=== PATIENT | male | born 1985 | race Hispanic/Latino ===

== ENCOUNTER 2020-03-01 08:04 | Emergency (ER) | payer OTHER ==
[2020-03-01] MEDS ORDERED: SODIUM CHLORIDE 0.9% 1000ML 1,000 ML IV ONE (09:32)
[2020-03-01] MEDS ORDERED: GABAPENTIN 100 MG CAPSULE ONE (09:32)
[2020-03-01] MEDS ORDERED: GABAPENTIN 300 MG CAPSULE ONE (09:32)
[2020-03-01] MEDS ORDERED: DIAZEPAM 5 MG/ML 2 ML SYG ONE (09:44)
[2020-03-01] MEDS ORDERED: KETOROLAC TROMETHAMINE 30MG/ML ONE (10:45)
== END 2020-03-01 12:20 | disposition home or self-care (01) ==
LOC: EDH 08:04
DX: M54.10 Radiculopathy, site unspecified (principal); M51.16 Intervertebral disc disorders with radiculopathy, lumbar region; G89.29 Other chronic pain; M54.5 Low back pain
CPT/HCPCS: 96361; 96374; 96375; 99284; J1885; J3360; J7030

== ENCOUNTER 2023-04-02 10:16 | Emergency (ER) | payer MEDICAID, OTHER ==
[~2023-04-02] VITALS: Ht 165.1 cm; Wt 64.9 kg
[2023-04-02] MEDS ORDERED: CIPR7.5D7 OT (11:19)
[2023-04-02 11:37] VITALS: BP 133/78; PULSE 78; RESP 14; O2SAT 98
== END 2023-04-02 11:38 | disposition home or self-care (01) ==
LOC: EDH 10:16
DX: H60.91 Unspecified otitis externa, right ear (principal)

== ENCOUNTER 2023-12-13 23:22 | Emergency (ER) | payer SELFPAY ==
[~2023-12-13] VITALS: Ht 167.6 cm; Wt 67.1 kg
[~2023-12-13 23:22] MED LIST: CIPR7.5D7 OT
[2023-12-13 23:51] LABS: APPEARANCE,URINE CLEAR (CLEAR); BILIRUBIN,URINE NEGATIVE (NEGATIVE); COLOR,URINE YELLOW (YELLOW); GLUCOSE, URINE (UA) NEGATIVE (NEGATIVE); KETONES,URINE NEGATIVE (NEGATIVE); LEUKOCYTE ESTERASE ,URINE NEGATIVE Leu/uL (NEGATIVE); NITRATE,URINE NEGATIVE (NEGATIVE); OCCULT BLOOD,URINE NEGATIVE (NEGATIVE); PH,URINE 5.5 (5.0-8.0); PROTEIN,URINE NEGATIVE (NEGATIVE); UROBILINOGEN,URINE 0.2 mg/dL (0.2-1.0)
[2023-12-13 23:52] LABS: RAPID GROUP A STREP negative (NEGATIVE)
[2023-12-13 23:54] LABS: ADD UA MICROSCOPIC NO
[2023-12-13 23:58] LABS: SARS-CoV-2, RNA, NAAT NEGATIVE SARS CoV-2 (NEGATIVE)
[2023-12-14 00:02] LABS: INFLUENZA TYPE A Negative For Type A (NEGATIVE); INFLUENZA TYPE B Negative For Type B (NEGATIVE)
[2023-12-14] MEDS: ondanSETRON 4MG INJ IVP ONE (00:13)
[2023-12-14] MEDS: LIDOCAINE HCL 2% VISCOUS 15 ML UDCUP PO ONE (00:13)
[2023-12-14] MEDS: DICYCLOMINE HCL 10 MG/5 ML ML PO ONE (00:13)
[2023-12-14] MEDS: FAMOTIDINE 20MG TAB PO ONE (00:13)
[2023-12-14] MEDS: morPHINE 2 MG SYG IVP ONE (00:13)
[2023-12-14] MEDS: MAG/ALUM/SIMETH 30 ML UDCUP PO ONE (00:13)
[2023-12-14 00:19] LABS: CREATININE 0.8 mg/dL (0.5-1.3); POTASSIUM 3.3 mmol/L (3.5-5.1)
[2023-12-14 00:27] LABS: BASOPHILS # (AUTO) 0.07 K/uL (0.00-0.20); BASOPHILS % (AUTO) 0.6 % (0.0-5.0); EOSINOPHILS # (AUTO) 0.72 K/uL (0.00-0.70); EOSINOPHILS % (AUTO) 6.2 % (0.0-8.0); HEMATOCRIT 48.4 % (42-54); IMMATURE GRANULOCYTE ABSOLUTE 0.04 K/uL (0-1); LYMPHOCYTES # (AUTO) 1.6 K/uL (1.0-4.8); LYMPHOCYTES % (AUTO) 13.9 % (21.0-51.0); MEAN CORPUSCULAR HEMOGLOBIN 30.6 pg (27.0-33.0); MEAN CORPUSCULAR HGB CONC 34.5 g/dL (32.0-36.0); MEAN CORPUSCULAR VOLUME 88.6 fL (79-99); MONOCYTES # (AUTO) 0.7 K/uL (0.1-1.0); NEUTROPHILS # (AUTO) 8.5 K/uL (1.8-7.7); PLATELET COUNT (AUTO) 210 K/uL (130-400); RED BLOOD CELL COUNT(AUTO) 5.46 MIL/uL (4.50-6.20); RED CELL DISTRIBUTION WIDTH 12.6 % (11.0-15.5); WHITE BLOOD COUNT (AUTO) 11.6 K/uL (4.8-10.8)
[2023-12-14] MEDS: PoTASSium BIcarbonate/CIT AC 25 MEQ TABLET.EFF PO ONE (01:00)
[2023-12-14 01:02] VITALS: BP 122/74; PULSE 61; RESP 20; TEMP 98.9; O2SAT 100
[2023-12-14] MEDS ORDERED: CIPR-278 PO (01:43)
== END 2023-12-14 01:53 | disposition home or self-care (01) ==
LOC: EDH 23:22
DX: K52.9 Noninfective gastroenteritis and colitis, unspecified (principal); Z20.822 Contact with and (suspected) exposure to COVID-19; R11.2 Nausea with vomiting, unspecified; E87.6 Hypokalemia
CPT/HCPCS: 99285; 71045; 87635; 84484; 80048; 83690; 85025; 87880; 87804 ×2; 81003; 36415; 93005; 96374; 96375; J2270; J2405

== ENCOUNTER 2024-06-27 11:06 | Emergency (ER) | payer SELFPAY ==
[~2024-06-27] VITALS: Ht 160 cm; Wt 69.4 kg
[~2024-06-27 11:06] MED LIST changes: +CIPR-278 PO
--- NOTE | 2024-06-27 11:15 | ERN ---
ED Note History of Present Illness Stated Complaint: DIZZINESS, HEADACHE, NAUSEA Chief Complaint: Dizzy/Light Headed Time Seen by MD: 11:08 Dictation: PATIENT IS A 38-YEAR-OLD MALE COMING IN WITH HIS WITH COMPLAINTS OF HAVING A GENERALIZED HEADACHE WITH DIZZINESS AND THE ROOM SPINNING AND FOR THE LAST DAY. MILD NAUSEA NO VOMITING. HE DENIES CHEST PAIN BACK PAIN. NIH IS 0, PATIENT NOTED TO HAVE BILATERAL HORIZONTAL NYSTAGMUS IN TRIAGE. PATIENT DOES STATE TO HIS IN [place] SHE HAS HAD DIZZINESS AND VERTIGO IN THE PAST, HAS NEVER HAD A TREATED. Allergies: Coded Allergies: No Known Allergies (Unverified Allergy, Unknown, 03/01/20) Home Meds Active Scripts Ciprofloxacin HCl (Cipro) 500 Mg Tablet, 1 TAB PO BID for 10 Days, #20 TAB 0 Refills Prov:SUSIE JORDAN MD 12/14/23 Ciprofloxacin HCl/Dexameth (Ciproflox-Dexameth Otic Susp) 0.3 %-0.1 % Drops.susp, 7.5 ML OT TID for 7 Days, #5 DROP Prov:ANNELISE SOMMERS MANAGER RISK 04/02/23 Past Medical History Past Medical History: No Pertinent History, Other (DIZZINESS) Surgical History: None Family History: Negative RN Note Reviewed/Agreed w/PFSH: Yes Review of System Dictation CONSTITUTIONAL: NEGATIVE EXCEPT FOR HPI HEAD/FACE: NEGATIVE EXCEPT FOR HPI EENT: NEGATIVE EXCEPT FOR HPI RESPIRATORY: NEGATIVE EXCEPT FOR HPI GASTROINTESTINAL/ABDOMINAL: NEGATIVE EXCEPT FOR HPI NAUSEA GENITOURINARY: NEGATIVE EXCEPT FOR HPI MUSCULOSKELETAL: NEGATIVE EXCEPT FOR HPI INTEGUMENTARY: NEGATIVE EXCEPT FOR HPI NEUROLOGICAL/PSYCH: NEGATIVE EXCEPT FOR HPI DIZZINESS/VERTIGO HEMATOLOGIC/LYMPHATIC: NEGATIVE EXCEPT FOR HPI ALL SYSTEMS NEGATIVE, EXCEPT NOTED ABOVE. 13 POINT REVIEW OF SYSTEMS ASSESSED AND ALL NEGATIVE EXCEPT FOR ABOVE. Initial Vital Sign VS Vital Signs Date Time Temp Pulse Resp B/P (MAP) Pulse Ox O2 Delivery O2 Flow Rate FiO2 06/27/24 11:08 97.9 74 16 121/81 100 Room Air 0 06/27/24 11:32 21 Physical Exam Dictation VITAL SIGNS REVIEWED GENERAL APPEARANCE: ALERT, ORIENTED X 3, NO ACUTE DISTRESS, WELL DEVELOPED, NOURISHED. HEAD AND FACE: NON-TRAUMATIC. EYES: PERRL, PINK CONJUNCTIVAS, EYELID NO TRAUMA, ANTERIOR CHAMBER WITH ARCUS SENILIS. BILATERAL HORIZONTAL NYSTAGMUS EARS: PINNAS INTACT AND NO SIGNS OF TRAUMA OR ERYTHEMA EAR CANALS CLEAR AND NO DISCHARGE TM NO ERYTHEMA NOSE: NO DISCHARGE, NO BLEEDING. OROPHARYNX: MOUTH NORMAL, TONGUE PINK, PHARYNX CLEAR,NO ERYTHEMA, TONSILS NO EXUDATES, NO ABSCESSES NOTED, MUCOUS MEMBRANE MOIST NECK: SUPPLE, NON-TENDER, NO THYROMEGALY, NO MASSES, NO JVD, NO BRUITS BREAST:DEFERRED CHEST:NO TENDERNESS, NO CREPITUS, NO PARADOXICAL MOVEMENT, NO RETRACTIONS LUNGS:CLEAR, WELL-VENTILATED, SYMMETRIC, NO RALES, NO WHEEZING, NO RHONCHI, NO STRIDOR, GOOD BREATH SOUNDS BILATERALLY HEART: REGULAR RATE, REGULAR RHYTHM, NO MURMUR, NO GALLOPS VASCULAR: NO PERIPHERAL EDEMA, ABDOMEN: SOFT, POSITIVE BOWEL SOUNDS, NONDISTENDED, NO GUARDING, NONTENDER, NO REBOUND, NO MASSES NO HEPATOMEGALY, NO SPLENOMEGALY, NO RUBY'S SIGN, NO HERNIAS. RECTAL: DEFERRED GENITAL: DEFERRED NEUROLOGICAL: NORMAL SPEECH, MOTOR FUNCTION INTACT, SENSORY FUNCTION INTACT NIH IS 0 MUSCULOSKELETAL: NECK NONTENDER, FULL RANGE OF MOTION, BACK NONTENDER, FULL RANGE OF MOTION, EXTREMITIES: NONTENDER, FULL RANGE OF MOTION SKIN: COLOR PINK, DRY, NO TURGOR, NO RASH, NO LACERATIONS, NO ABRASIONS, NO CONTUSIONS. LYMPHATIC: DEFERRED Results (Laboratory/Radiology) Laboratory/Radiology Laboratory Tests Test 06/27/24 11:40 White Blood Count 6.2 K/uL (4.8-10.8) Red Blood Count 5.31 MIL/uL (4.50-6.20) Hemoglobin 16.1 g/dL (14.0-18.0) Hematocrit 47.4 % (42-54) Mean Corpuscular Volume 89.3 fL (79-99) Mean Corpuscular Hemoglobin 30.3 pg (27.0-33.0) Mean Corpuscular Hemoglobin Concent 34.0 g/dL (32.0-36.0) Red Cell Distribution Width 12.7 % (11.0-15.5) Platelet Count 198 K/uL (130-400) Mean Platelet Volume 11.9 fL (7.5-10.5) H Immature Granulocyte % (Auto) 0.2 % (0-1) Neutrophils (%) (Auto) 55.3 % (40.0-77.0) Lymphocytes (%) (Auto) 28.6 % (21.0-51.0) Monocytes (%) (Auto) 8.4 % (3.0-13.0) Eosinophils (%) (Auto) 6.7 % (0.0-8.0) Basophils (%) (Auto) 0.8 % (0.0-5.0) Neutrophils # (Auto) 3.4 K/uL (1.8-7.7) Lymphocytes # (Auto) 1.8 K/uL (1.0-4.8) Monocytes # (Auto) 0.5 K/uL (0.1-1.0) Eosinophils # (Auto) 0.41 K/uL (0.00-0.70) Basophils # (Auto) 0.05 K/uL (0.00-0.20) Absolute Immature Granulocyte (auto 0.01 K/uL (0-1) Nucleated Red Blood Cells 0.0 % (0.0-0.19) Sodium Level 137 mmol/L (136-145) Potassium Level 3.7 mmol/L (3.5-5.1) Chloride Level 101 mmol/L (101-111) Carbon Dioxide Level 30 mmol/L (21-32) Blood Urea Nitrogen 10 mg/dL (7-18) Creatinine 0.8 mg/dL (0.5-1.3) Glomerular Filtration Rate Calc 115 mL/min (>90) Random Glucose 93 mg/dL (70-105) Total Calcium 8.8 mg/dL (8.5-10.1) Troponin I High Sensitivity < 4 ng/L (4-75) L Labs Reviewed?: Yes EKG Comment: EKG SINUS RHYTHM/HEART RATE 69/EARLY REPOLARIZATION SEEN IN THE ANTEROLATERAL LEADS ED Course ED Course Orders Procedure Category Date Status Time Cbc With Differential LAB 06/27/24 Complete 11:12 Troponin I High LAB 06/27/24 Complete Sensitivity 11:12 12 Lead Ekg Tracing- EKG 06/27/24 Logged Technical 11:12 Basic Metabolic Panel LAB 06/27/24 Complete 11:12 Acetaminophen 500mg PHA 06/27/24 Complete Tab (Tylenol 500mg T 11:30 Dexamethasone 4mg/Ml PHA 06/27/24 Complete 1ml Vial (Dexametha 11:30 Meclizine Hcl 25 Mg PHA 06/27/24 Complete (Antivert 25 Mg) 11:30 Current Medications Medications (Trade) Dose Ordered Sig/Ko Route PRN Reason Start Time Stop Time Status Last Admin Dose Admin Acetaminophen (TYLenol 500MG TAB) 1,000 mg ONCE ONCE PO 06/27/24 11:30 06/27/24 11:31 DC 06/27/24 11:43 Dexamethasone Sodium Phosphate (dexaMETHasone 4MG/ML 1ML VIAL) 8 mg ONCE ONCE IM 06/27/24 11:30 06/27/24 11:31 DC 06/27/24 11:42 Meclizine HCl (ANTIvert 25 mg) 50 mg ONCE ONCE PO 06/27/24 11:30 06/27/24 11:31 DC 06/27/24 11:43 Vital Signs Date Time Temp Pulse Resp B/P (MAP) Pulse Ox O2 Delivery O2 Flow Rate FiO2 06/27/24 11:32 98.1 70 16 120/80 100 Room Air* 0 21 06/27/24 11:08 97.9 74 16 121/81 100 Room Air 0 1230/PATIENT STATES HIS DIZZINESS AND VERTIGO IS NOW MARKEDLY IMPROVED. NIH IS 0, PATIENT DISCHARGED HOME WITH DIZZINESS VERTIGO WE WILL BE TREATED AND HEEL SAID HE WILL FOLLOW UP WITH DR. TESHA LUX TOMORROW. HEART Score Response (Comments) Value History: Low suspicion (0) 0 EKG: Normal 0 Age: < 45yrs (0) 0 Initial Troponin: Normal limit (0) 0 Total 0 Medical Decision Making MDM MEDICAL DISCHARGE MAKING BASED ON BASIC LABS AND EKG WITH TROPONIN. EKG NORMAL SINUS RHYTHM/LABS NORMAL/TROPONIN LESS THAN FOUR. NIH IS 0 PATIENT STATES HE FEELS BETTER AFTER TREATMENT WITH MECLIZINE AND STEROIDS. DX & DISP Disposition: Discharge Departure Impression: Primary Impression: Benign positional vertigo Additional Impression: Acute labyrinthitis Condition: Stable Scripts Prednisone (Prednisone) 20 Mg Tablet 1 TAB PO AD for 6 Days, #14 TAB 0 Refills TAKE 1 TAB BY MOUTH THREE TIMES PER DAY X3 DAYS, THEN TAKE 1 TAB BY MOUTH TWICE A DAY X2 DAYS, THEN TAKE 1 TAB BY MOUTH ONCE A DAY X1 DAY. Prov: ANNELISE SOMMERS NP 06/27/24 Meclizine HCl (Meclizine HCl) 25 Mg Tablet 25 MG PO TID for vertigo, #30 TAB 0 Refills Prov: ANNELISE SOMMERS NP 06/27/24 Additional Instructions: FOLLOW-UP WITH PRIMARY CARE PROVIDER IN 1 TO 2 DAYS. TAKE MEDICATIONS DIRECTED HERE IN THE EMERGENCY ROOM. OKAY TO CONTINUE HOME MEDICATIONS UNLESS O THERWISE DISCUSSED DURING YOUR VISIT IN THE EMERGENCY ROOM TODAY. RETURN TO YOUR NEAREST EMERGENCY ROOM IF SYMPTOMS WORSEN OR IF THERE IS NO IMPROVEMENT. CALL 911 IF YOU NEED IMMEDIATE ASSISTANCE. TAKE TYLENOL OR MOTRIN [id number] NEEDED AND IF NO CONTRAINDICATIONS ARE PRESENT. INCREASE ORAL HYDRATION. A WOUND CULTURE OR URINE CULTURE WAS ORDERED HERE IN THE EMERGENCY ROOM DEPARTMENT PLEASE FOLLOW-UP WITH PRIMARY CARE PROVIDER AND ADVISE THEM TO GET REPEAT PORTS FROM OUR FACILITY. IF YOU HAD ANY SAUL WRAP/SPLINTS THAT WERE APPLIED HERE, PLEASE DO NOT REMOVE THEM UNTIL YOU SEE YOUR PRIMARY CARE OR SPECIALTY. TAKE PREDNISONE DIRECTED WITH FOOD UNTIL GONE. TAKE MECLIZINE EVERY 8 HOURS FOR THE NEXT TWO DAYS. INCREASE YOUR WATER INTAKE. FOLLOW UP WITH YOUR PRIMARY CARE DOCTOR NEXT 1-2 DAYS AND NO WORK UNTIL CLEARED BY HIM. Referrals: SELF,REFERRAL (PCP) TESHA LUX MD Time of Disposition: 12:33 I have reviewed the case, and I agree with, Diagnosis and Plan ANNELISE SOMMERS NP Jun 27, 2024 11:15
[2024-06-27] MEDS: dexaMETHasone SOD PHOSPHATE 4 MG/ML 1ML VIAL IM ONE (11:42)
[2024-06-27] MEDS: mecliZINE HCL 25 MG TABLET PO ONE (11:43)
[2024-06-27] MEDS: acetaMINOPHEN 500 MG TABLET PO ONE (11:43)
[2024-06-27 11:57] LABS: BASOPHILS # (AUTO) 0.05 K/uL (0.00-0.20); BASOPHILS % (AUTO) 0.8 % (0.0-5.0); EOSINOPHILS # (AUTO) 0.41 K/uL (0.00-0.70); EOSINOPHILS % (AUTO) 6.7 % (0.0-8.0); HEMATOCRIT 47.4 % (42-54); IMMATURE GRANULOCYTE ABSOLUTE 0.01 K/uL (0-1); LYMPHOCYTES # (AUTO) 1.8 K/uL (1.0-4.8); LYMPHOCYTES % (AUTO) 28.6 % (21.0-51.0); MEAN CORPUSCULAR HEMOGLOBIN 30.3 pg (27.0-33.0); MEAN CORPUSCULAR VOLUME 89.3 fL (79-99); MONOCYTES # (AUTO) 0.5 K/uL (0.1-1.0); MONOCYTES % (AUTO) 8.4 % (3.0-13.0); NEUTROPHILS # (AUTO) 3.4 K/uL (1.8-7.7); NEUTROPHILS % (AUTO) 55.3 % (40.0-77.0); PLATELET COUNT (AUTO) 198 K/uL (130-400); RED BLOOD CELL COUNT(AUTO) 5.31 MIL/uL (4.50-6.20); RED CELL DISTRIBUTION WIDTH 12.7 % (11.0-15.5); WHITE BLOOD COUNT (AUTO) 6.2 K/uL (4.8-10.8)
[2024-06-27 12:06] LABS: CREATININE 0.8 mg/dL (0.5-1.3); POTASSIUM 3.7 mmol/L (3.5-5.1)
[2024-06-27 12:31] VITALS: BP 120/78; PULSE 65; RESP 16; TEMP 98.1; O2SAT 100
[2024-06-27] MEDS ORDERED: PRED20TA3 PO (12:33)
[2024-06-27] MEDS ORDERED: MECL-302 PO (12:33)
--- NOTE | 2024-06-27 14:46 | EKG ---
[facility] Test Date: 2024-06-27 Test Time: 11:20:12 Pat Name: QI CHRISTOPHER Department: [facility] Room: Gender: M Customer Care Agent: [id number] : 1985 Requested By: ANNELISE SOMMERS Order Number: [id number] Reading MD: Calixto Conti Measurements Intervals [place] Rate: 69 P: 62 MN: 178 QRS: 38 QRSD: 95 T: 45 QT: 382 QTc: 411 Interpretive Statements Sinus rhythm ST elev, probable normal early repol pattern Compared to ECG 12/13/2023 23:33:33 No significant changes Electronically Signed On 06-28-2024 13:36:28 CDT by Calixto Conti Please click the below link to view image of tracing.
== END 2024-06-27 12:44 | disposition home or self-care (01) ==
LOC: EDH 11:06
DX: H81.10 Benign paroxysmal vertigo, unspecified ear (principal); H83.09 Labyrinthitis, unspecified ear
CPT/HCPCS: 99284; 84484; 80048; 85025; 36415; 96372; 93005; J1100